=== PATIENT | male | born 2000 | race Hispanic/Latino ===

== ENCOUNTER 2022-10-27 23:37 | Emergency (ER) | payer SELFPAY ==
[2022-10-28 01:25] LABS: Bilirubin Moderate (Negative); Blood, Urine Trace (Negative); Clarity Clear (Clear); Glucose, Urine (Dipstick) Negative (Negative); Ketone, Urine > or equal to 80 mg/dL (Negative); Leukocyte Small (Negative); Nitrite Negative (Negative); Protein, Urine (Dipstick) 30 mg/dL (Neg-Trace); pH, Urine 5.5 (5.0-9.0)
[2022-10-28 01:26] LABS: Bacteria/HPF None Seen HPF (None Seen); Specific Gravity, Urine 1.028 (1.002-1.036)
== END 2022-10-28 01:20 | disposition home or self-care (01) ==
LOC: NAV ERS 23:37
DX: B34.9 Viral infection, unspecified (principal); B30.9 Viral conjunctivitis, unspecified; K12.1 Other forms of stomatitis; R30.0 Dysuria; Z20.822 Contact with and (suspected) exposure to COVID-19
CPT/HCPCS: 81003; 81015; 87804; 99283; U0003; U0005